=== PATIENT | female | born 1960 | race Caucasian/White ===

== ENCOUNTER → 2018-07-02 | Outpatient (CLI) | payer BC ==
[~2018-07-02] MED LIST: ALDACTONE25 MG PO; ASPIRIN 32325 MG/TAB PO; ASPIRIN 81M81 MG/TA2 PO; ASPIRIN E.C. 8181 MG PO; ATACAND 16M16 MG/TAB PO; ATACAND16 MG PO; BYSTOLIC5 MG PO; CANA100T; CARDI-OMEGA1000 MG PO; CINNAMON500 MG PO; COZAAR 25MG25 MG/TAB PO; EFFIENT10 MG PO; GLIPIZIDE ER10 MG PO; GLUCOPHAGE500 MG/TAB PO; GLUCOTROL XL10 MG PO; IRON324 M1 PO; LIPITOR 80MG80 MG PO; LIPITOR80 MG PO; LOPRESSOR 225 MG/TAB PO; LOPRESSOR50 MG PO; LOW DOSE ASPIRI81 MG PO; NIACIN500 M3 PO; NITROSTAT0.4 MG/TAB SL; ONGLYZA5 MG PO; PEPCID 20MG TAB20 MG; PEPCID 20MG TAB20 MG PO; PLAVIX 75MG TAB75 MG PO; PRAVACHOL80 MG PO; UNABLE; VITAMIN D2000 I1 PO; VITAMIN D2400 IU PO
== END ==
LOC: COL.PUL 07:47
DX: R06.02 Shortness of breath (principal); Z87.891 Personal history of nicotine dependence

== ENCOUNTER → 2018-10-05 | Outpatient (CLI) | payer BC | LOC: MC.RAD 13:03 | DX: Z12.31 Encounter for screening mammogram for malignant neoplasm of breast (principal) ==

== ENCOUNTER 2019-12-09 09:27 | Inpatient (IN) | payer BC ==
[~2019-12-09] VITALS: Ht 165.1 cm; Wt 97.7 kg
[~2019-12-09 09:27] MED LIST changes: -NIACIN500 M3 PO; +NIASPAN 500MG500 MG PO
[2019-12-10] VITALS (12 sets, daily range): BP systolic 119–151; BP diastolic 60–89; PULSE 73–95; TEMP 97.6–98.4
[2019-12-10] MEDS ORDERED: IMDUR 60MG60 MG/TAB PO (07:17)
[2019-12-10] MEDS ORDERED: BIOTIN300 MCG PO (07:17)
[2019-12-10] MEDS ORDERED: TURMERIC500 MG PO (07:18)
--- NOTE | 2019-12-10 07:20 | NUR ---
BG 336 reported to Joselo Alan CRNA at this time. Waiting for further orders.
--- NOTE | 2019-12-10 07:28 | NUR ---
VORB for 8 units SQ Novolog for BG 336. No orders to re-check prior to OR. Per Joselo Alan CRNA, he will re-check in OR.
--- NOTE | 2019-12-10 07:52 | NUR ---
SQ Insulin Co-signer was Chasidy Gan RN.
--- NOTE | 2019-12-10 08:00 | NUR ---
Patient arrived to [facility] [address] for admission at 0645. She is alert and oriented. Procedure confirmed, denies any questions, and verbalizes understanding. She changes to the gown independently. PIV started in left forearm #20 gauge. Breath sounds clear bilaterally to auscultation. Clear S1S2 heart tones heard with regular rate noted. PERRLA, +2 pupils bilaterally. Bowel sounds audible and active. +2 radial, DP, and PT pulses palpated bilaterally. No edema noted. Call light usage taught and within reach.
--- NOTE | 2019-12-10 08:02 | NUR ---
Patient to PACU at this time for block. Belongings taken to PACU.
--- NOTE | 2019-12-10 13:56 | NUR ---
Hospitalist consult called to LESLEY Bishop.
--- NOTE | 2019-12-10 21:00 | NUR ---
Pt. laying in bed at this time. Pt. is A&OX3, assessment complete. IV to lt. forearm patent, IV fluids infusing per orders. Abd. incisions well approximated, SUZETTE. Pt. reported pain at a 5 on pain scale, gave pain meds per orders. Pt. denies further needs, call light within reach.
[2019-12-11 04:06] VITALS: BP 116/64; PULSE 73; TEMP 98.6
[2019-12-11 07:33] LABS: BASO % 0.3 % (0.0-2.0); EOS % 0.6 % (0-4.0); GRAN % 70.7 % (42.2-75.2); HEMOGLOBIN 11.1 g/dl (12.5-16.0); LYMPH # 1.3 (1.2-3.4); LYMPH % 17.7 % (20.0-51.0); MEAN CELL VOLUME 88 fl (80.0-100.0); MEAN CORPUSCULAR HEMOGLOBIN 28 pg (27.0-31.0); MEAN CORPUSCULAR HGB CONC 32 g/dl (33.0-37.0); MEAN PLATELET VOLUME 10.1 fl (7.4-10.4); MONO # 0.7 (0.1-0.6); MONO % 10.4 % (1.7-9.3); PLATELET COUNT 232 K/mm3 (130-400); RED BLOOD COUNT 3.99 M/mm3 (4.10-5.30); REDCELL DISTRIBUTION WIDTH-CV 14.6 % (11.5-14.5)
[2019-12-11 07:39] LABS: HEMATOCRIT 34.9 % (37.0-47.0)
[2019-12-11 07:47] LABS: CALCIUM 8.5 mg/dL (8.4-10.2); CREATININE, serum 0.79 (0.52-1.25); MAGNESIUM 1.8 mg/dL (1.6-2.3); PHOSPHOROUS 3.3 mg/dL (2.5-4.5); POTASSIUM 3.6 mmol/L (3.4-5.0)
[2019-12-11 08:05] VITALS: BP 141/65; PULSE 88; TEMP 99.1
--- NOTE | 2019-12-11 10:00 | NUR ---
Patient resting in bed. She had an episode of Incontience stool, Roaster Operator assisted with pericare. Patient reports passing flatus. Abdomen distended, but soft. Robotic lap site edges well approximated. Healy to DD, adequate urine output. Int. Scds ble.
[2019-12-11 11:28] VITALS: BP 147/77; PULSE 79; TEMP 97.9
--- NOTE | 2019-12-11 13:25 | NUR ---
rounded & orders obtained. Patient nichols Dc per orders. Pain better managed after ultram. She has been sitting up in chair,watching TV. Tolerating meals, encouraged to take it slow & being mindful of carb intake. Blood sugars elevated. Patient ambulated halls with MANAGER SYSTEMS. SHe had a friend visit, Ned chamorro
--- NOTE | 2019-12-11 14:24 | NUR ---
Initial visit; Patient thanked Telecommunicator for looking in on her and offering spiritual care.
--- NOTE | 2019-12-11 16:48 | NUR ---
Supervisor [employer] met with patient to discuss discharge planning. Patient lives alone in [place] and sees Dr. Priyanka Rivera for primary care. Patient obtains medications from [facility] and states that some of her medications can get expensive even with insurance coverage. Patient states she uses a CPAP at home. Patient is employed at [employer] which is a [employer]. Patient reports independence with ADLS. Patient does not have Advance Directives and was not interested in completing them at this time. Patient plans to return either to home or to her sister, Nicolas ([phone]) upon discharge. No additional concerns at this time.
[2019-12-11 16:52] VITALS: BP 153/71; PULSE 71; TEMP 98.8
--- NOTE | 2019-12-11 19:32 | NUR ---
Patient continues to do well. Voiding adequately. Continues to have loose stools. Pain managed per ERAS protocol. blood sugars remain elevated, treated per sliding scale. Int. REport to Elgin Pelaez
[2019-12-11 19:51] VITALS: BP 164/84; PULSE 75; TEMP 98
--- NOTE | 2019-12-11 20:00 | NUR ---
Pt. sitting up in bed at this time. Pt. is A&OX3, assessment complete. INT to lt. forearm patent. Pt. denies pain at this time. abd. robotic lap sites, X6, well approximated, CREDIT ASSISTANT. Pd. denies further needs, call light within reach.
[2019-12-11 23:55] VITALS: BP 153/75; PULSE 77; TEMP 98.1
[2019-12-12 04:00] VITALS: BP 174/85; PULSE 67; TEMP 97.7
[2019-12-12 06:23] LABS: BASO % 0.5 % (0.0-2.0); EOS # 0.1 (0.0-0.7); EOS % 1.9 % (0-4.0); GRAN # 4.2 (1.4-6.5); HEMOGLOBIN 11.2 g/dl (12.5-16.0); LYMPH # 1.3 (1.2-3.4); LYMPH % 21.2 % (20.0-51.0); MEAN CELL VOLUME 88 fl (80.0-100.0); MEAN CORPUSCULAR HEMOGLOBIN 28 pg (27.0-31.0); MEAN CORPUSCULAR HGB CONC 31 g/dl (33.0-37.0); MEAN PLATELET VOLUME 10.1 fl (7.4-10.4); MONO # 0.6 (0.1-0.6); MONO % 8.9 % (1.7-9.3); PLATELET COUNT 211 K/mm3 (130-400); RED BLOOD COUNT 4.07 M/mm3 (4.10-5.30); REDCELL DISTRIBUTION WIDTH-CV 14.7 % (11.5-14.5)
[2019-12-12 06:27] LABS: HEMATOCRIT 35.7 % (37.0-47.0)
[2019-12-12 06:35] LABS: ALBUMIN 3.6 gm/dL (3.5-5.0); BILIRUBIN,TOTAL 0.4 mg/dL (0.0-1.0); CALCIUM 8.6 mg/dL (8.4-10.2); CREATININE, serum 0.65 (0.52-1.25); POTASSIUM 3.6 mmol/L (3.4-5.0); TOTAL PROTEIN 6.8 gm/dL (6.4-8.2)
[2019-12-12 07:30] VITALS: BP 133/65; PULSE 77; TEMP 97.6
--- NOTE | 2019-12-12 09:00 | NUR ---
Dr Rodriguez here to see patient.
--- NOTE | 2019-12-12 09:30 | NUR ---
Patient alert and oriented, answers questions appropriately. See assessment. Abdomen soft, non tender, non distended. Bowel sounds active x4 quads. Lap sites with edges well approximated, no redness or drainage noted. +Flatus. +Bowel movement. ERAS protocol and post op exercises reviewed with patient. No other c/o at this time.
[2019-12-12 10:52] VITALS: BP 136/75; PULSE 74; TEMP 98.3
--- NOTE | 2019-12-12 11:53 | NUR ---
First visit from the bookkeeper assistant. No needs right now.
[2019-12-12] MEDS ORDERED: NEURONTIN100 MG/CAP PO (14:39)
[2019-12-12] MEDS ORDERED: ULTRAM 50MG TAB50 MG PO (14:39)
[2019-12-12] MEDS ORDERED: ROXICODONE 55 MG/TAB PO (14:39)
[2019-12-12 16:13] VITALS: BP 137/80; PULSE 73; TEMP 98.3
--- NOTE | 2019-12-12 20:00 | NUR ---
Shift assessment complete. Patient in bed, awake. States, pain 5/10. Denies pain medication. Patient also had large, loose, bloody BM. Lap sites x6 CDI. Denies further needs at this time. Will continue to monitor.
[2019-12-12 20:15] VITALS: BP 144/75; PULSE 78; TEMP 98.3
[2019-12-13 00:28] VITALS: BP 132/79; PULSE 71; TEMP 97.5
[2019-12-13 06:04] VITALS: BP 140/74; PULSE 75; TEMP 97.8
[2019-12-13 06:58] VITALS: BP 125/77; PULSE 75; TEMP 97.1
--- NOTE | 2019-12-13 09:00 | NUR ---
Patient alert and oriented, answers questions appropriately. See assessment. Abdomen soft, non tender, non distended. Bowel sounds active x4 quads. +Flatus. Lap sites with edges well approximated, no redness or drainage noted. ERAS protocol and post op exercises reviewed. No c/o at this time.
[2019-12-13 11:32] VITALS: BP 143/83; PULSE 76; TEMP 98.6
[2019-12-13 14:59] VITALS: BP 131/68; PULSE 84; TEMP 98.6
--- NOTE | 2019-12-13 17:40 | NUR ---
Discharge instructions reviewed with patient, verbalized understanding. Discharged via wheelchair to auto/home with family at 1730.
== END 2019-12-13 17:30 | disposition home or self-care (01) | DRG 331 ==
LOC: INPTSU 12-10 06:35 → SURG 12-10 06:35
PROVIDERS: ADMIT Surgery
PROC: 8E0W4CZ Robotic Assisted Procedure of Trunk Region, Percutaneous Endoscopic Approach (ICD-10-PCS; 2019-12-10)
PROC: 0DTF4ZZ Resection of Right Large Intestine, Percutaneous Endoscopic Approach (ICD-10-PCS; principal; 2019-12-10 08:30)
DX: C18.2 Malignant neoplasm of ascending colon (principal); I25.10 Atherosclerotic heart disease of native coronary artery without angina pectoris; G47.33 Obstructive sleep apnea (adult) (pediatric); E11.65 Type 2 diabetes mellitus with hyperglycemia; Z88.1 Allergy status to other antibiotic agents; Z88.8 Allergy status to other drugs, medicaments and biological substances; I25.2 Old myocardial infarction; Z79.84 Long term (current) use of oral hypoglycemic drugs; Z79.82 Long term (current) use of aspirin; I10 Essential (primary) hypertension
CPT/HCPCS: 99222; 99231-AI; 99232-AI; A4314; A9284; J0171; J0690; J1170; J1650; J1815; J2250; J2270; J2405; J2704; J3010; J7030; J7120

== ENCOUNTER → 2023-03-30 | Outpatient (CLI) | payer MEDICARE, MEDICAID ==
[~2023-03-30] MED LIST changes: +BIOTIN300 MCG PO; +IMDUR 60MG60 MG/TAB PO; +LEVEMIR FLEX100 U/ML SQ; +MASON NATURAL2000 IU PO; +NEURONTIN100 MG/CAP PO; +NORCO 325 MG-51 TAB PO; +ROXICODONE 55 MG/TAB PO; +TURMERIC500 MG PO; +TYLENOL 500MG500 MG PO; +ULTRAM 50MG TAB50 MG PO; -VITAMIN D2000 I1 PO
== END ==
LOC: COL.RAD 10:53
DX: Z45.2 Encounter for adjustment and management of vascular access device (principal)

== ENCOUNTER → 2023-12-01 | Outpatient (CLI) | payer MEDICARE, MEDICAID ==
[~2023-12-01] MED LIST changes: +Barium Sulfate 2% Oral Susp 450 ML X 2 BOTTLES PO SCH; +COZAAR100 MG PO; +GLUCOTROL10 MG PO; +HUMALOG PEN100 U/ML SQ; +Iohexol 300 - 100 ML VIAL IV ONE; +JARDIANCE10 PO; +NS 100 ML IV SCH; +SOLIQUA 100 UNIT3 ML SQ
== END ==
LOC: CANSCHCLI → COL.RAD 09:21
DX: C18.2 Malignant neoplasm of ascending colon (principal)
CPT/HCPCS: J1644; Q9967

== ENCOUNTER 2023-12-27 08:44 | Emergency (ER) | payer MEDICARE, MEDICAID ==
[~2023-12-27] VITALS: Ht 165.1 cm; Wt 110.5 kg
[~2023-12-27 08:44] MED LIST changes: -Barium Sulfate 2% Oral Susp 450 ML X 2 BOTTLES PO SCH; -Iohexol 300 - 100 ML VIAL IV ONE; -NS 100 ML IV SCH
[2023-12-27 08:49] VITALS: TEMP 97.7
[2023-12-27 09:20] LABS: BASO % 0.4 % (0.0-2.0); EOS # 0.1 K/mm3 (0.0-0.7); EOS % 1.2 % (0.0-4.0); GRAN # 4.6 K/mm3 (1.4-6.5); GRAN % 66.1 % (42.2-75.2); HEMATOCRIT 40.3 % (37.0-47.0); HEMOGLOBIN 12.7 g/dl (12.5-16.0); LYMPH # 1.7 K/mm3 (1.2-3.4); LYMPH % 24.8 % (20.0-51.0); MEAN CELL VOLUME 85 fl (80.0-100.0); MEAN CORPUSCULAR HEMOGLOBIN 27 pg (27-31); MEAN CORPUSCULAR HGB CONC 32 g/dl (33.0-37.0); MEAN PLATELET VOLUME 9.7 fl (7.4-10.4); MONO # 0.5 K/mm3 (0.1-0.6); MONO % 6.9 % (1.7-9.3); PLATELET COUNT 216 K/mm3 (130-400); RED BLOOD COUNT 4.75 M/mm3 (4.10-5.30); REDCELL DISTRIBUTION WIDTH-CV 16.7 % (11.5-14.5)
[2023-12-27 09:41] LABS: ALANINE AMINOTRANSFERASE 21 U/L (0-55); ALBUMIN 3.3 gm/dL (3.4-4.8); ALKALINE PHOSPHATASE 118 U/L (40-150); ANION GAP 9 mmol/L (7-16); AST,SGOT 16 U/L (5-34); BILIRUBIN,TOTAL 0.5 mg/dL (0.2-1.2); BLOOD UREA NITROGEN 15 mg/dL (10-20); CALCIUM 9.7 mg/dL (8.4-10.2); CARBON DIOXIDE 26 mmol/L (23-31); CHLORIDE 106 mmol/L (98-107); CREATININE, serum 1.01 mg/dL (0.57-1.11); GLUCOSE 99 mg/dL (70-99); SODIUM 141 mmol/L (136-145); TROPONIN-I < 0.010 ng/mL (0.00-0.033)
[2023-12-27 13:06] VITALS: BP 125/82; PULSE 72
== END 2023-12-27 13:06 | disposition home or self-care (01) ==
LOC: COL.ER 08:44
PROVIDERS: Family Medicine
DX: R07.89 Other chest pain (principal); E11.649 Type 2 diabetes mellitus with hypoglycemia without coma; Z95.5 Presence of coronary angioplasty implant and graft

== ENCOUNTER 2024-05-31 07:11 | Emergency (ER) | payer MEDICARE ==
[~2024-05-31] VITALS: Ht 165.1 cm; Wt 106.8 kg
[2024-05-31 07:17] VITALS: TEMP 97.6
[2024-05-31] MEDS ORDERED: Dextrose 50% Water 25 GM/50 ML SYRINGE IV ONE (07:30)
[2024-05-31 07:48] LABS: BASO # 0.1 K/mm3 (0.0-0.2); BASO % 0.6 % (0.0-2.0); EOS # 0.1 K/mm3 (0.0-0.7); EOS % 1.2 % (0.0-4.0); GRAN # 4.4 K/mm3 (1.4-6.5); GRAN % 55.3 % (42.2-75.2); HEMATOCRIT 43.1 % (37.0-47.0); HEMOGLOBIN 13.4 g/dl (12.5-16.0); LYMPH # 2.7 K/mm3 (1.2-3.4); LYMPH % 33.4 % (20.0-51.0); MEAN CELL VOLUME 85 fl (80.0-100.0); MEAN CORPUSCULAR HEMOGLOBIN 26 pg (27-31); MEAN CORPUSCULAR HGB CONC 31 g/dl (33.0-37.0); MEAN PLATELET VOLUME 9.8 fl (7.4-10.4); MONO # 0.7 K/mm3 (0.1-0.6); MONO % 9.1 % (1.7-9.3); PLATELET COUNT 239 K/mm3 (130-400); REDCELL DISTRIBUTION WIDTH-CV 16.4 % (11.5-14.5)
[2024-05-31 08:02] LABS: ALBUMIN 4.4 g/dL (3.4-4.8); BILIRUBIN,TOTAL 0.6 mg/dL (0.2-1.2); CALCIUM 9.7 mg/dL (8.4-10.2); CREATININE, serum 1.01 mg/dL (0.57-1.11); TOTAL PROTEIN 7.4 g/dl (6.2-8.1)
[2024-05-31 10:46] VITALS: BP 142/74; PULSE 71
== END 2024-05-31 10:46 | disposition home or self-care (01) ==
LOC: COL.ER 07:11
PROVIDERS: Personal Emergency Response Attendant
DX: E11.649 Type 2 diabetes mellitus with hypoglycemia without coma (principal); Z79.4 Long term (current) use of insulin; Z79.899 Other long term (current) drug therapy